=== PATIENT | female | born 1985 | race Caucasian/White ===

== ENCOUNTER 2020-04-21 02:47 | Outpatient (CLI) | payer OTHER, SELFPAY ==
[2020-04-21 18:37] LABS: SARS-CoV-2 RNA PCR Negative
== END 2020-04-21 02:48 | disposition home or self-care (01) ==
LOC: ANHCOVIDDT 02:48
PROVIDERS: Visit Provider Surgery Plastic and Reconstructive Surgery
DX: Z01.818 Encounter for other preprocedural examination (principal); Z20.828 Contact with and (suspected) exposure to other viral communicable diseases
CPT/HCPCS: 87635; C9803; U0003

== ENCOUNTER 2020-04-23 06:45 | Day surgery (SDC) | payer OTHER, SELFPAY ==
[2020-04-13 14:17] VITALS: BMI 24.2
[2020-04-23] VITALS (7 sets, daily range): BP systolic 129–148; BP diastolic 79–93; PULSE 63–96; RESP 14–19; TEMP 36.9–37.1; O2SAT 96–100; BMI 23.5
--- NOTE | 2020-04-23 08:04 | WPDANESEPPF ---
Anes - Initial Pre Proc Eval Procedure: Operation Date: 04/23/20 09:00 Proposed Procedures p Bilateral Augmentation Mammoplasty - Gilbert Parker MD Date/Time: 04/23/20 08:04 Surgeon: Gilbert Parker MD Pre Op Diagnosis: Micromastia Patient Data Age: 34 Gender: F Height: 5 ft 4 in Weight: 62.15 kg Last Vital Signs Temp 36.9 C 04/23/20 07:41 Pulse 82 04/23/20 07:41 Resp 16 04/23/20 07:41 BP 129/88 04/23/20 07:41 Pulse Ox 100 04/23/20 07:41 Allergies Allergy/AdvReac Type Severity Reaction Status Date / Time No Known Allergies Allergy Verified 04/23/20 07:38 Home Medications Medication Instructions Recorded Confirmed Type levothyroxine 25 mcg capsule 25 mcg PO DAILY 03/30/20 04/13/20 History carisoprodol 350 mg tablet 350 mg PO TID PRN #21 tablet 04/15/20 04/23/20 Rx docusate sodium 100 mg capsule 100 mg PO DAILY #14 cap 04/15/20 04/23/20 Rx ondansetron HCl 4 mg tablet 4 mg PO Q8H #28 tablet 04/15/20 04/23/20 Rx oxycodone-acetaminophen 5 mg-325 1 tablet PO Q6H PRN #15 tablet 04/15/20 04/23/20 Rx mg tablet Patient hx anesthesia problems: none Family hx anesthesia problems: none PMFSH Past Medical History Medical History (Updated 04/23/20 @ 08:05 by Rigoberto Graff MD) Hypothyroid Social History Social History Smoking status: Former smoker Tobacco type: cigarettes Alcohol intake: never Living arrangements: with family Gender identity (if verbalized by the patient): Female Spiritual care concerns: No Anes - Eval Final PreProcedure Day of Procedure 04/23/20 08:04 Patient weight: normal Heart: regular rate and rhythm Lungs: clear to auscultation Airway: Mallampati scale class II Neurological: alert and oriented Last oral intake: >/= 8 hours ASA classification: II Emergent: no Anesthetic plan: proceed Anesthesia type and monitoring: general LMA and standard monitoring Informed Consent: The patient's anesthetic plan and its attendant risks and benefits were discussed with the patient/family/POA. Questions were solicited and answers provided to the satisfaction of the patient/family/POA.
[2020-04-23] MEDS: LACTATED RINGERS 1,000 ML 30 ML IV CONT (08:06)
[2020-04-23] MEDS: SCOPOLAMINE 1.5 MG PATCH TRANSDERM (08:07)
--- NOTE | 2020-04-23 09:42 | WPDHPUPDATE1 ---
History and Physical Update Update Date/Time: 04/23/20 09:42 History and Physical has been reviewed, including an updated exam of the patient. There are NO changes in the patient's condition. Risks, benefits, and alternatives have been discussed and questions answered. Patient agrees to proceed with procedure.
--- NOTE | 2020-04-23 10:04 | P.OP_ITS ---
Procedure Note - Detailed Date of procedure: 04/23/20 Pre-op diagnosis: Micromastia Post-op diagnosis: same Procedure performed: Bilateral breast augmentation Description of procedure: She is here today for bilateral breast augmentation. Previously and again today the risks, benefits, alternatives were discussed in extensive detail. I wanted her to be very realistic about the risks involved as well as expectations. We discussed aftercare and what to monitor for. Made sure answered all of her questions to her satisfaction today and consent was obtained. Marked in the preoperative holding area with their verification. The patient w as taken to the operating room placed supine on the operating table. Anesthesia was provided by anesthesiology. A surgical time-out was taken. We cleansed the skin and 1% lidocaine and 0.25% Marcaine with epinephrine was used anesthetize as a field block. She was prepped and draped in a standard sterile fashion. Tegaderm nipple Alcantara were placed. A 15 blade used to make an incision along the inframammary fold. Dissection was continued at 45 degree angle until the chest wall as identified. I incised the pectoralis major along its inferior border and completely released the inferior border leaving the medial border intact. I created a subpectoral pocket in the appropriate dimensions based on our preoperative planning for the implant. I then copiously irrigated with saline solution and verified a strict hemostasis. Next the use a triple antibiotic and Betadine containing solution to irrigate the pocket. I washed my gloves with the triple antibiotic and Betadine solution. We washed the implant immediately upon opening it with this solution and only opened it when we needed it. I used implant funnel and no-touch technique. The implant was introduced into the pocket using the funnel. Having verified positioning of the implant this was closed using 2-0 Vicryl followed by 3-0 Monocryl in a running subcuticular 4-0 Monocryl followed by tissue glue. Fluffs, Jose Antonio wrap, and surgical bra were placed. Patient was awoke and taken to PACU without difficulty. All instrument sponge counts were correct at the end of the case. Implants: Bilateral Balta Bauer SofTouch 450cc Right: REF SSF-450 SN [id number] Left: REF SSF-450 SN [id number] Anesthesia: GLMA Surgeon: Gilbert Parker MD Estimated blood loss (mL): 10 Drains: No Packing: No Pathology: none sent Complications: No immediate complications Condition: stable Disposition: PACU
[2020-04-23] MEDS: ceFAZolin SODIUM 2 GM/20 ML SW SYRINGE IV PUSH (10:15)
[2020-04-23] MEDS: LIDO 1%/EPINEPHRINE 1:100,000 20 ML VIAL 40 ML INFILTRATE (10:21)
--- NOTE | 2020-04-23 12:03 | WPDANESPN ---
Anes - Prog Note Post-Op Date/Time: 04/23/20 12:03 Cardiovascular status: normal Respiratory status: normal Airway patency: baseline Mental status: baseline Post-Op hydration status: normal Vital Signs: Last Vital Signs Temp 37.1 C 04/23/20 11:14 Pulse 80 04/23/20 11:55 Resp 19 04/23/20 11:55 BP 137/92 H 04/23/20 11:55 Pulse Ox 100 04/23/20 11:55 Pain Score (VAS): 2 Post-procedural complaints: none Patient Feedback: Patient satisfied with anesthetic care.
[2020-04-23] MEDS: ONDANSETRON HCL ODT 4 MG TABLET PO (12:43)
--- NOTE | 2020-04-23 12:54 | SUR.PHASEII ---
1245 pt had small emesis after getting dose of Zofran. Pt stated she felt much better after vomiting and was ready for d/c home.
--- NOTE | 2020-04-28 09:08 | SUR.OPER ---
Late adjustments to chart made due to certified caregiver orientation chart review per Ryder Gonzalez RN
== END 2020-04-23 12:55 | disposition home or self-care (01) ==
PROVIDERS: Visit Provider Surgery Plastic and Reconstructive Surgery
PROC: (CPT 19325; principal; 2020-04-23 09:00)
DX: N64.82 Hypoplasia of breast (principal)
CPT/HCPCS: 19325

== ENCOUNTER 2020-11-24 10:46 | Emergency (ER) | payer BC, OTHER, SELFPAY ==
[2020-11-24 11:11] VITALS: BP 122/60; PULSE 69; RESP 16; TEMP 36.4; O2SAT 100
--- NOTE | 2020-11-24 11:22 | ED.SKABFB ---
HPI - Skin/Abscess/Foreign Bdy General Chief complaint: Skin/Abscess/Foreign Body Stated complaint: cyst in vaginal area Time Seen by Provider: 11/24/20 11:00 Source: patient and RN notes reviewed Mode of arrival: ambulatory Limitations: no limitations History of Present Illness HPI narrative: 35-year-old female presents concern for Bartholin cyst. Reports 1 instance of a similar cyst in the past that she had drained. Reports noticing pain several days ago, however the area doubled in size yesterday. She denies general malaise, body aches, drainage from the area. Denies warmth to the area, denies surrounding redness or induration. MD complaint: abscess/boil Related Data Home Medications Medication Instructions Recorded Confirmed levothyroxine 25 mcg capsule 25 mcg PO DAILY 03/30/20 04/13/20 Allergies Allergy/AdvReac Type Severity Reaction Status Date / Time No Known Allergies Allergy Verified 10/12/20 11:48 Review of Systems Review of Systems: Narrative: CONSTITUTIONAL: Denies malaise, chills, sweats, or fever. CARDIOVASCULAR: Denies chest pain, palpitations, or edema. RESPIRATORY: Denies cough or dyspnea. GASTROINTESTINAL: Denies abdominal pain, nausea, vomiting GENITOURINARY: Denies dysuria or hematuria. Reports tender cyst on her right leg SKIN: Denies redness, drainage MUSCULOSKELETAL: Denies myalgia. All systems reviewed & are unremarkable except as noted in HPI and below PMFSH Past Medical History Medical History Hypothyroid Social History Social History Smoking status: Former smoker Tobacco type: cigarettes Alcohol intake: never Gender identity (if verbalized by the patient): Female Spiritual care concerns: No Comments At time of signature, agree with nursing past medical, surgical, social and family history. There is no relevant family history pertinent to the presenting complaint Exam Narrative: Exam Narrative: GENERAL: Well-appearing, well-nourished, and in no acute distress. HEAD: Normocephalic EYES: PERRLA, conjunctivae clear ENT: Mucous membranes moist. NECK: Supple. CHEST: No respiratory distress. Speaks in full sentences. HEART: Regular rate and rhythm. Genitourinary: Bartholin cyst approximately 4 cm x 2 cm noted to the right Bartholin gland, no surrounding erythema, induration. Tender to touch. SKIN: Warm, dry, no rash. Right inguinal lymphadenopathy noted NEURO: Alert and oriented x3. PSYCH: Normal mood and affect Course Course Emergency Course: Discussed with patient pros and cons of draining Bartholin cyst, discussed that follow-up with her senior service aide is still necessary for further evaluation and possible treatment of the cyst. Discussed with patient that drainage today would be for comfort. Patient agreeable to this plan. Patient is aware of diagnosis, understands and agrees to treatment plan. Anticipatory guidance given. Patient agrees to follow-up as directed and is aware of reasons to seek care at the emergency department. Portions of this record may have been created with voice recognition software Vital Signs Vital signs: Vital Signs Temperature 97.5 F L 11/24/20 11:11 Pulse Rate 69 11/24/20 11:11 Respiratory Rate 16 11/24/20 11:11 Blood Pressure 122/60 11/24/20 11:11 Pulse Oximetry 100 11/24/20 11:11 Temperature 97.5 F L 11/24/20 11:11 Pulse Rate 69 11/24/20 11:11 Respiratory Rate 16 11/24/20 11:11 Blood Pressure 122/60 11/24/20 11:11 Pulse Oximetry 100 11/24/20 11:11 Reviewed. Procedures Abscess I/D bartholin's gland: Date of Incision: 11/24/20 Time of Incision: 11:15 Side (if applicable): right Local Anesthetic: lidocaine 1% Amount of anesthesia used (mL): 4 Technique: incised with #11 blade Amount of fluid expressed (mL): 5 Irrigation: No Pac
== END 2020-11-24 11:38 | disposition home or self-care (01) ==
PROVIDERS: Emergency Provider Nurse Practitioner
DX: N75.0 Cyst of Bartholin's gland (principal); Z87.891 Personal history of nicotine dependence; E03.9 Hypothyroidism, unspecified
CPT/HCPCS: 56420; 99212; G0463

== ENCOUNTER → 2021-01-26 02:28 | Outpatient (CLI) | payer BC, OTHER, SELFPAY ==
[2021-01-26 23:32] LABS: SARS-CoV-2 RNA PCR Negative
== END ==
PROVIDERS: Visit Provider Obstetrics & Gynecology
DX: Z01.812 Encounter for preprocedural laboratory examination (principal); Z20.822 Contact with and (suspected) exposure to COVID-19
CPT/HCPCS: C9803; U0003; U0005

== ENCOUNTER 2021-01-29 02:01 | Day surgery (SDC) | payer BC, OTHER, SELFPAY ==
[2021-01-19 09:55] VITALS: BMI 21.5
--- NOTE | 2021-01-28 14:25 | WPDANESEPPF ---
Anes - Initial Pre Proc Eval Procedure: Operation Date: 01/29/21 07:30 Proposed Procedures p Excision of Bartholin's Cyst - Tai Escobar MD Date/Time: 01/28/21 14:25 Surgeon: Tai Escobar MD Pre Op Diagnosis: abscess of Bartholins Gland Patient Data Age: 35 Gender: F Height: 1.63 m Weight: 57 kg Allergies Allergy/AdvReac Type Severity Reaction Status Date / Time No Known Allergies Allergy Verified 01/19/21 09:54 Home Medications Medication Instructions Recorded Confirmed Type levothyroxine 25 mcg capsule 25 mcg PO DAILY 03/30/20 01/19/21 History montelukast 10 mg tablet 10 mg PO DAILY #90 tablet 10/14/20 01/19/21 Rx Patient hx anesthesia problems: none Family hx anesthesia problems: none [facility] Past Medical History Medical History Hypothyroid Surgical History Surgical History (Updated 01/28/21 @ 14:26 by Sumit Medina MD) History of breast augmentation Social History Social History Smoking packs per day: 1 Smoking cigarettes per day: 20.0 Years smoked: 10 Smoking pack-years: 10.00 Smoking status: Former smoker Tobacco type: cigarettes Additional smoking assessment comments: QUIT IN 2013 Substance use type: marijuana Other substance usage details: MARIJUANA TWICE A WEEK Living arrangements: with family Gender identity (if verbalized by the patient): Female Spiritual care concerns: No Anes - Eval Final PreProcedure Day of Procedure 01/28/21 14:25 Patient weight: normal Heart: regular rate and rhythm Lungs: clear to auscultation and normal air movement Airway: Mallampati scale class II Neurological: alert and oriented Last oral intake: >/= 8 hours ASA classification: II Emergent: no Anesthetic plan: proceed Anesthesia type and monitoring: general GIVS and LMA Informed Consent: The patient's anesthetic plan and its attendant risks and benefits were discussed with the patient/family/POA. Questions were solicited and answers provided to the satisfaction of the patient/family/POA.
[2021-01-29] VITALS (8 sets, daily range): BP systolic 106–134; BP diastolic 53–83; PULSE 50–90; RESP 12–22; TEMP 36–36.6; O2SAT 99–100
[2021-01-29] MEDS: ACETAMINOPHEN 500 MG TABLET 1000 MG PO (06:15)
[2021-01-29] MEDS: LACTATED RINGERS 1,000 ML 30 ML IV CONT ×2 (06:20→08:57)
--- NOTE | 2021-01-29 07:31 | WPDHPUPDATE1 ---
History and Physical Update Update Date/Time: 01/29/21 07:31 History and Physical has been reviewed, including an updated exam of the patient. There are NO changes in the patient's condition. Risks, benefits, and alternatives have been discussed and questions answered. Patient agrees to proceed with procedure.
[2021-01-29] MEDS: LIDO 1%/EPINEPHRINE 1:100,000 50 ML VIAL 10 ML INFILTRATE (08:01)
[2021-01-29] MEDS: KETOROLAC 30 MG/ML VIAL (*BKC) IV PUSH (08:50)
--- NOTE | 2021-01-29 09:16 | W.PM.PROC2 ---
Procedure Note - Detailed Date of Procedure 01/29/21 Pre-op Diagnosis abscess of Bartholins Gland Post-op Diagnosis same Procedure Performed Excision of Bartholin's gland Surgeon Tai Escobar MD Anesthesia general Indications Recurrent abscess of the Bartholin's gland Findings Nodular scarred tissue in the subcutaneous tissue at the Bartholin's gland. Nodular mass at the Bartholin's gland. Description of Procedure This patient was taken the operating room. She was prepped and draped in the dorsal lithotomy position after induction of general anesthesia. An excision was made over skin of the vulva near the Bartholin's gland. The Bartholin's gland was nodular and scarred. Using sharp and blunt dissection around the scarred mass. The mass was resected. Suture was used in various parts during the dissection to make the area hemostatic. Cautery was also used. The defect was closed with multiple layers of 2 0 Vicryl. The skin was closed with a subcuticular for Monocryl. Skin was covered with Dermabond. Estimated Blood Loss 50 Drains Yes Packing No Pathology yes Complications No immediate complications Condition stable
[2021-01-29] MEDS: fentaNYL CITRATE INJ (*CRX) 100 MCG/2 ML VIAL 25 MCG IV PUSH ×4 (09:22→09:32)
[2021-01-29] MEDS: oxyCODONE HCL (*CRX) 5 MG TAB IR PO (10:01)
[2021-01-29] MEDS: ONDANSETRON INJ 4 MG/2 ML VIAL IV PUSH (10:32)
== END 2021-01-29 10:46 | disposition home or self-care (01) ==
PROVIDERS: Visit Provider Obstetrics & Gynecology
PROC: (CPT 56740; principal; 2021-01-29 07:30)
DX: N75.1 Abscess of Bartholin's gland (principal); E03.9 Hypothyroidism, unspecified; Z87.891 Personal history of nicotine dependence; F12.90 Cannabis use, unspecified, uncomplicated
CPT/HCPCS: 56740; 88305; A9270; J1100; J1885; J2250; J2405; J2704; J3010; J7120

== ENCOUNTER 2021-07-12 08:14 | Emergency (ER) | payer BC, OTHER, SELFPAY ==
--- NOTE | 2021-07-12 08:24 | ED.LOWEXIN ---
HPI - Extremity Injury (Lower) General Chief Complaint: Extremity Injury, Lower Stated Complaint: Bruised Knee Cap Time Seen by Provider: 07/12/21 08:24 Source: patient, RN notes reviewed and old records reviewed Mode of arrival: ambulatory Limitations: no limitations History of Present Illness HPI Narrative: 36-year-old female presents to the [facility] with a bruised anterior left kneecap. Related Data Home Medications Medication Instructions Recorded Confirmed levothyroxine 25 mcg capsule 25 mcg PO DAILY 03/30/20 07/12/21 Allergies Allergy/AdvReac Type Severity Reaction Status Date / Time No Known Allergies Allergy Verified 07/12/21 08:21 Review of Systems Review of Systems: All systems reviewed & are unremarkable except as noted in HPI and below Constitutional: Constitutional: Reports no additional constitutional complaints Eyes: Eyes: Reports no additional eye complaints ENT: Reports system reviewed and no additional complaints, except as documented Cardiovascular: Cardiovascular: Reports no additional cardiovascular complaints Respiratory: Respiratory: Reports no additional respiratory complaints Gastrointestinal: Gastrointestinal: Reports no additional gastrointestinal complaints Musculoskeletal: Musculoskeletal: Reports as per HPI Comments: Bruise left knee anterior Integumentary/Breasts: Skin/Breast: Reports system reviewed and no additional complaints, except as docu Neurologic: Reports system reviewed and no additional complaints, except as documented Psychiatric: Psychiatric: Reports no additional psychiatric complaints Allergic/Immunologic: Allergic/Immunologic: Reports no additional allergic/immunologic complaints PMFSH Past Medical History Medical History Hypothyroid Surgical History Surgical History History of breast augmentation Social History Social History Smoking packs per day: 1 Smoking cigarettes per day: 20.0 Years smoked: 10 Smoking pack-years: 10.00 Smoking status: Former smoker Tobacco type: cigarettes Additional smoking assessment comments: QUIT IN 2013 Substance use type: marijuana Other substance usage details: MARIJUANA TWICE A WEEK Gender identity (if verbalized by the patient): Female Spiritual care concerns: No Comments At the time of my signature, I reviewed and agree with the nursing past medical, surgical, social, and family history. There is no relevant family history pertinent to the patient complaint. Exam Const: General: healthy appearing, no acute distress and alert Nutritional Appearance: well nourished Orientation/consciousness: patient oriented x3 Limitations: no limitations HENMT: Head: normal to inspection Ears: external ears normal Eyes: Pupils: Equal, round and reactive pupils present Neck: Neck: normal visual inspection, no lymphadenopathy and no meningeal signs Chest: Chest palpation & inspection: normal inspection of the chest Resp: Effort & Inspection: normal respiratory effort Cardio: Rate: regular rate Back/Spine/Pelvis: Back: no CVA tenderness Skin: Full body images: 1. Bruising without swelling or increased warmth. No redness Neuro: General: patient oriented x3, moves all extremities, no meningeal signs and no focal motor deficits Speech: normal speech Gait exam (Neuro): Normal gait present Extrem: Left lower extremity: knee Details: normal to inspection, normal ROM, knee ligament exam normal and ecchymosis (Patellar region measuring 4 x 4 cm); no tenderness, no swelling, no abrasions, no lacerations, no crepitus, no penetrating wound, no deformity and no unusual warmth Psych: Appearance: grossly normal and well kempt Mental Status: mental status grossly normal Affect: normal affect Attitude: cooperative Thought content: Yes Normal thought cont
[2021-07-12 08:26] VITALS: BP 129/64; PULSE 80; RESP 16; TEMP 36.3; O2SAT 100
== END 2021-07-12 08:36 | disposition home or self-care (01) ==
PROVIDERS: Emergency Provider Nurse Practitioner
DX: S80.02XA Contusion of left knee, initial encounter (principal); X58.XXXA Exposure to other specified factors, initial encounter; Z87.891 Personal history of nicotine dependence; E03.9 Hypothyroidism, unspecified
CPT/HCPCS: 99212; G0463

== ENCOUNTER 2023-06-02 10:09 | Emergency (ER) | payer BC, OTHER, SELFPAY ==
[2023-06-02 10:19] VITALS: BP 118/69; PULSE 62; RESP 16; TEMP 36.9; O2SAT 100
--- NOTE | 2023-06-02 10:42 | ED.URI ---
HPI - URI/Sore Throat General Chief Complaint: Upper Respiratory Infection Stated Complaint: Sinus Time Seen by Provider: 06/02/23 10:42 Source: patient, RN notes reviewed and old records reviewed Mode of arrival: ambulatory Limitations: no limitations History of Present Illness HPI Narrative: 37-year-old female presents to the [facility] with sinus pain and congestion that started 1 month ago. Has tried multiple [id number] products minimal relief. Treatments prior to arrival: cold medicine Related Data Allergies Allergy/AdvReac Type Severity Reaction Status Date / Time No Known Allergies Allergy Verified 06/02/23 10:17 Review of Systems Review of Systems: All systems reviewed & are unremarkable except as noted in HPI and below Constitutional: Constitutional: Reports no additional constitutional complaints Eyes: Eyes: Reports no additional eye complaints ENT: Reports as per HPI and Reports sinus pressure Cardiovascular: Cardiovascular: Reports no additional cardiovascular complaints, Denies chest pain and Denies dyspnea Respiratory: Respiratory: Reports no additional respiratory complaints, Denies chest congestion, Denies cough and Denies dyspnea Gastrointestinal: Gastrointestinal: Reports no additional gastrointestinal complaints, Denies abdominal pain, Denies nausea and Denies vomiting Musculoskeletal: Musculoskeletal: Reports no additional musculoskeletal complaints Integumentary/Breasts: Skin/Breast: Reports system reviewed and no additional complaints, except as docu Neurologic: Reports system reviewed and no additional complaints, except as documented Psychiatric: Psychiatric: Reports no additional psychiatric complaints Allergic/Immunologic: Allergic/Immunologic: Reports no additional allergic/immunologic complaints [facility] Past Medical History Medical History Hypothyroid Surgical History Surgical History History of breast augmentation Social History Social History Smoking packs per day: 1 Smoking cigarettes per day: 20.0 Years smoked: 10 Smoking pack-years: 10.00 Smoking status: Former smoker Tobacco type: cigarettes Additional smoking assessment comments: QUIT IN 2013 Substance use type: marijuana Other substance usage details: MARIJUANA TWICE A WEEK Living arrangements: with family Gender identity (if verbalized by the patient): Female Spiritual care concerns: No Comments At the time of my signature, I reviewed and agree with the nursing past medical, surgical, social, and family history. There is no relevant family history pertinent to the patient complaint. Exam Const: General: cooperative, healthy appearing, comfortable, no acute distress, well developed, alert and well nourished Nutritional Appearance: well nourished Orientation/consciousness: patient oriented x3 Limitations: no limitations HENMT: Head: normal to inspection Ears: hearing grossly normal bilaterally, external ears normal, TM's normal bilaterally and EAC's normal Face/Nose/Sinus: Normal external nose present, Normal nares present, Normal nasal mucous membranes and turbinates present, normal facial exam, face symmetric and sinus tenderness Face and sinus: normal facial exam and face symmetric Mouth: Yes Normal oral and palatal mucosa present, Yes lip normal and Yes moist mucous membranes Throat: posterior oropharynx normal and uvula midline Eyes: General: appearance normal, both eyes and all related structures Alignment and Position: alignment normal Periorbital: periorbital findings normal Pupils: Equal, round and reactive pupils present EOM: EOMs intact bilaterally Neck: Neck: normal visual inspection, full ROM, no lymphadenopathy and no meningeal signs Chest: Chest palpation & inspection: normal inspection of the chest Resp:
== END 2023-06-02 11:08 | disposition home or self-care (01) ==
PROVIDERS: Emergency Provider Nurse Practitioner
DX: J01.40 Acute pansinusitis, unspecified (principal); E03.9 Hypothyroidism, unspecified; Z87.891 Personal history of nicotine dependence
CPT/HCPCS: 99213; G0463

== ENCOUNTER 2024-07-11 11:08 | Emergency (ER) | payer BC, MEDICAID, SELFPAY ==
[2024-07-11 11:22] VITALS: BP 122/73; PULSE 63; RESP 16; TEMP 36.4; O2SAT 100
--- NOTE | 2024-07-11 11:31 | ED_ITS ---
HPI - URI/Sore Throat General Chief Complaint: Upper Respiratory Infection Stated Complaint: ALVES,sore throat,stomach hurts Time Seen by Provider: 07/11/24 11:31 Source: patient, RN notes reviewed and old records reviewed Mode of arrival: ambulatory Limitations: no limitations History of Present Illness HPI Narrative: Patient presents with complaints of sore throat that began yesterday. She reports that a couple of days ago, she woke up with some nausea, then yesterday a headache, and finally today the sore throat. She is concerned about strep throat due to exposure. She is not taking any medications for her symptoms. Afebrile on arrival. No distress, able to manage own secretions, no drooling or stridor. Denies any injury or trauma. Related Data Home Medications Medication Instructions Recorded Confirmed No Home Medications 07/11/24 07/11/24 Allergies Allergy/AdvReac Type Severity Reaction Status Date / Time No Known Allergies Allergy Verified 06/02/23 10:17 Review of Systems Review of Systems: All systems reviewed & are unremarkable except as noted in HPI and below Constitutional: Constitutional: Reports as per HPI, Reports no additional constitutional complaints and Reports headache(s) ENT: Reports system reviewed and no additional complaints, except as documented and Reports sore throat Cardiovascular: Cardiovascular: Reports no additional cardiovascular complaints Respiratory: Respiratory: Reports no additional respiratory complaints and Reports cough Gastrointestinal: Gastrointestinal: Reports no additional gastrointestinal complaints, Reports nausea and Denies vomiting PMFSH Past Medical History Medical History Hypothyroid Surgical History Surgical History History of breast augmentation Social History Social History Smoking packs per day: 1 Smoking cigarettes per day: 20.0 Years smoked: 10 Smoking pack-years: 10.00 Smoking status: Former smoker Tobacco type: cigarettes Additional smoking assessment comments: QUIT IN 2013 Substance use type: marijuana Other substance usage details: MARIJUANA TWICE A WEEK Living arrangements: with family Gender identity (if verbalized by the patient): Female Spiritual care concerns: No Comments At the time of my signature, I reviewed and agree with the nursing past medical, surgical, social, and family history. There is no relevant family history pertinent to the patient complaint. Exam Const: General: cooperative, no acute distress, alert and awake Orientation/consciousness: oriented to person, oriented to place and oriented to time HENMT: Head: normal to inspection Mouth: Yes moist mucous membranes Throat: posterior oropharynx abnormal erythema Resp: Effort & Inspection: normal respiratory effort and able to speak in complete sentences Auscultation: clear to auscultation bilaterally, no crackles, no rales, no rhonchi and no wheezes Cardio: Palpation: normal PMI Rate: regular rate Rhythm: regular rhythm Heart sounds: S1 normal heart sound present and S2 normal heart sound present Neuro: General: oriented to person, oriented to place and oriented to time Cranial nerves: Yes CN's II-XII intact bilaterally Psych: Appearance: grossly normal Thought process: Normal thought process present Insight: Good insight present (Psych) Judgement: Good judgement present (Psych) Course Course Level of Care: Express Care Visit Vital Signs Vital signs: Vital Signs Temperature 97.6 F 07/11/24 11:22 Pulse Rate 63 07/11/24 11:22 Respiratory Rate 16 07/11/24 11:22 Blood Pressure 122/73 07/11/24 11:22 Pulse Oximetry 100 07/11/24 11:22 Oxygen Delivery Room Air 07/11/24 11:22 Temperature 97.6 F 07/11/24 11:22 Pulse Rate 63 07/11/24 11:22 Respiratory Rate 16 07/11/24 11:22 Blood Pressure 122/73 07/11/24 11:22 Pulse Oximetry 100 07/11/24 11:22 Oxygen Delivery Room Air 07/11/24 11:22 Reviewed MDM - URI/Sore Throat MDM Narrative Medical decision making narrative: Rapid strep negative, culture pending. Symptoms likely viral in origin. Supportive care measures discussed. Discharge instructions reviewed with patient, as well as provided in writing per nursing staff. The instructions also include specific and strict return/GO TO THE ER as well as f/u information. All questions have been answered, and the patient deny any further questions with discharge and discharge plan. Some parts of this dictation were generated by voice recognition software and may contain typographical and/or grammatical inaccuracies. Differential Diagnosis Differential diagnosis: Likely upper respiratory infection and pharyngitis Medical Records Attestation: I reviewed the patient's medical records. Lab Data Attestation: I reviewed the patient's lab results. Labs: Lab Results 07/11/24 Range/Units 11:46 POC Grp A Strep Screen Negative (Negative) Discharge Plan Discharge Clinical Impression: Upper respiratory infection Patient Disposition: Home, Self-Care Condition: Stable Instructions: Antibiotic Form, Cold Symptoms (ED) Additional Instructions: Tylenol and/or ibuprofen per package instructions as needed for fever or pain. Emergency department for new or worse symptoms. Follow up with primary care provider Patient Language: Icelandic Prescriptions: No Action No Home Medications Follow-up/Referrals: [facility] [Primary Care Provider] - 2 Weeks Stand Alone Forms: Work/School Release IP Time of Disposition: 12:07
[2024-07-11 11:49] LABS: EDSTREPNEGPOS1 Negative (Negative)
== END 2024-07-11 12:15 | disposition home or self-care (01) ==
PROVIDERS: Emergency Provider Nurse Practitioner Family
DX: J06.9 Acute upper respiratory infection, unspecified (principal); Z87.891 Personal history of nicotine dependence; E03.9 Hypothyroidism, unspecified
CPT/HCPCS: 87081; 87880; 99213; G0463

== ENCOUNTER 2025-04-09 16:32 | Emergency (ER) | payer BC, MEDICAID, SELFPAY ==
[2025-04-09 16:41] VITALS: BP 135/79; PULSE 81; RESP 16; TEMP 36.8; O2SAT 100
[2025-04-09 17:16] LABS: EDCOVIDSCREEN Negative (Negative); EDINFLUASCREEN Negative (Negative); EDINFLUBSCREEN Negative (Negative)
--- NOTE | 2025-04-09 17:23 | ED_ITS ---
HPI - URI/Sore Throat General Chief Complaint: Upper Respiratory Infection Stated Complaint: URI Symptoms Time Seen by Provider: 04/09/25 17:24 Source: patient Mode of arrival: ambulatory Limitations: no limitations History of Present Illness HPI Narrative: 39-year-old female presents with complaint of nasal congestion, sinus pressure, fatigue and body aches for 2 days. Afebrile. No cough. No chest pain or shortness of breath. Denies nausea vomiting diarrhea. All systems reviewed and negative except as noted above. Related Data Home Medications ?Medication ?Instructions ?Recorded ?Confirmed ?Last Taken ?Type No Home Medications 07/11/24 04/09/25 U nknown History Allergies Allergy/AdvReac Type Severity Reaction Status Date / Time No Known Allergies Allergy Verified 04/09/25 16:54 [facility] Past Medical History Medical History Hypothyroid Surgical History Surgical History History of breast augmentation Social History Social History Smoking packs per day: 1 Smoking cigarettes per day: 20.0 Years smoked: 10 Smoking pack-years: 10.00 Smoking status: Former smoker Tobacco type: cigarettes Additional smoking assessment comments: QUIT IN 2013 Substance use type: marijuana Other substance usage details: MARIJUANA TWICE A WEEK Living arrangements: with family Gender identity (if verbalized by the patient): Female Spiritual care concerns: No Comments At time of signature, agree with nursing past medical, surgical, social and family history. There is no relevant family history pertinent to the presenting complaint. Exam Narrative: GENERAL: This is a well-nourished, well-developed patient, in no apparent distress. HEAD: normocephalic, atraumatic. EYES: PERRL. Sclera clear/white. Vision is grossly intact. EARS: External ears normal, auditory canals clear and without drainage, TMs normal without perforation. Hearing grossly intact. NOSE: External nose normal with no obvious nasal discharge, nares without redness, no rhinorrhea. THROAT: Mucous membranes moist, posterior pharynx clear. NECK: Neck supple, non-tender without lymphadenopathy, masses or thyromegaly. CARDIOVASCULAR: Regular rate and rhythm without murmurs, gallops, or rubs. RESPIRATORY: Clear to auscultation. Breath sounds equal bilaterally. No wheezes, rales, or rhonchi. SKIN: warm, Dry, intact with no suspicious lesions or rash, good texture and turgor. NEURO: awake, alert, and oriented to person, place and time. There were no obvious focal neurologic abnormalities. EXTREMITIES: No joint tenderness, effusion, or edema noted. Course Course Level of Care: Express Care Visit Vital Signs Vital signs: Vital Signs Temperature 36.8 C 04/09/25 16:41 Pulse Rate 81 04/09/25 16:41 Respiratory Rate 16 04/09/25 16:41 Blood Pressure 135/79 04/09/25 16:41 Pulse Oximetry 100 04/09/25 16:41 Oxygen Delivery Room Air 04/09/25 16:41 Temperature 36.8 C 04/09/25 16:41 Pulse Rate 81 04/09/25 16:41 Respiratory Rate 16 04/09/25 16:41 Blood Pressure 135/79 04/09/25 16:41 Pulse Oximetry 100 04/09/25 16:41 Oxygen Delivery Room Air 04/09/25 16:41 Reviewed MDM - URI/Sore Throat MDM Narrative Medical decision making narrative: negative COVID and influenza test. Patient is well-appearing, nontoxic. Recommend she take [id number] medications to treat symptoms. Differential Diagnosis Differential diagnosis: Likely upper respiratory infection, sinusitis and viral infection Lab Data Labs: Lab Results 04/09/25 Range/Units 17:13 POC Influenza A Ag Negative (Negative) POC Influenza B Ag Negative (Negative) POC SARS CoV-2 Ag Negative (Negative) Discharge Plan Discharge Clinical Impression: Upper respiratory infection, viral Patient Disposition: Home Condition: Stable Instructions: Upper Respiratory Infection (ED) Additional Instructions: your COVID and influenza test was negative today. Your symptoms are viral and may last 10-14 days. Purchased pseudoephedrine and take as directed on packaging. Drink at least 64 oz of water a day. See your doctor if symptoms are not improving. Patient Language: Czech Prescriptions: No Action No Home Medications Follow-up/Referrals: UNKNOWN,DOCTOR [Primary Care Provider] Time of Disposition: 17:30
== END 2025-04-09 17:35 | disposition home or self-care (01) ==
PROVIDERS: Emergency Provider Nurse Practitioner Family
DX: J06.9 Acute upper respiratory infection, unspecified (principal); Z20.822 Contact with and (suspected) exposure to COVID-19; E03.9 Hypothyroidism, unspecified; Z87.891 Personal history of nicotine dependence
CPT/HCPCS: 87426; 87804; 99213; G0463